=== PATIENT | female | born 1990 ===

== ENCOUNTER 2016-08-29 10:52 | Emergency (ER) | payer SELFPAY ==
[2016-08-29 11:00] VITALS: BP 119/75; PULSE 81; RESP 20; TEMP 97.9; O2SAT 100
--- NOTE | 2016-08-29 11:21 | C.PDOC ---
History Of Present Illness 26 y/o female presents to ED with c/o nausea and cravings since this morning and requests a test. She notes last menses was 08/21/16. Patient states that during her last , the urine test was negative despite being . Denies abdominal pain, vomiting, urinary symptoms, vaginal bleeding, or other complaints at this time. Time Seen by Provider: 08/29/16 11:09 Chief Complaint (Nursing): Medical Clearance History Per: Patient History/Exam Limitations: no limitations Onset/Duration Of Symptoms: Hrs Current Symptoms Are (Timing): Still Present Recent travel outside of the [place]: No Past Medical History Reviewed: Historical Data, Nursing Documentation, Vital Signs Vital Signs: Last Vital Signs Temp 97.9 F 08/29/16 10:59 Pulse 81 08/29/16 10:59 Resp 20 08/29/16 10:59 BP 119/75 08/29/16 10:59 Pulse Ox 100 08/29/16 12:02 - Medical History PMH: No Chronic Diseases Family History: States: No Known Family Hx - Social History Hx Alcohol Use: No Hx Substance Use: No - Immunization History Hx Tetanus Toxoid Vaccination: No Hx Influenza Vaccination: No Hx Pneumococcal Vaccination: No Review Of Systems Except As Marked, All Systems Reviewed And Found Negative. Constitutional: Negative for: Fever Cardiovascular: Negative for: Chest Pain Respiratory: Negative for: Shortness of Breath Gastrointestinal: Positive for: Nausea. Negative for: Vomiting, Abdominal Pain , Diarrhea Genitourinary: Negative for: Dysuria, Hematuria, Vaginal Bleeding Skin: Negative for: Rash Physical Exam - Physical Exam Appears: Well, Non-toxic, No Acute Distress Skin: Normal Color, Warm, Dry Head: Atraumatic, Normacephalic Eye(s): bilateral: Normal Inspection Chest: Symmetrical Cardiovascular: Rhythm Regular Respiratory: Normal Breath Sounds, No Rales, No Rhonchi, No Wheezing Gastrointestinal/Abdominal: Soft, No Tenderness, No Distention, No Guarding, No Rebound Extremity: Normal ROM Neurological/Psych: Oriented x3, Normal Speech Gait: Steady ED Course And Treatment O2 Sat by Pulse Oximetry: 100 (RA) Pulse Ox Interpretation: Normal Medical Decision Making Medical Decision Making: Plan: * Urinalysis, urine POC * Reassess Prior Visits: Notes and results from previous visits were reviewed. Progress Notes: Urine test negative in ER. On reassessment, patient is resting comfortably, and is in no acute distress. Patient instructed to follow up with clinic/[facility] within 1-2 days. Disposition Counseled Patient/Family Regarding: Need For Followup, Rx Given - Disposition Referrals: [facility] [Outside] [facility] [Outside] Disposition: HOME/ ROUTINE Disposition Time: 11:19 Condition: STABLE Additional Instructions: Please follow up with your airbrush artist or clinic for further evaluation Instructions: Acute Nausea and Vomiting (ED) - POA Present On Arrival: None - Clinical Impression Clinical Impression: Negative test - PA / GROUND SUPPORT AGENT / Resident Statement MD/DO has reviewed & agrees with the documentation as recorded. - Scribe Statement The provider has reviewed the documentation as recorded by the Katharina Nolen All medical record entries made by the Katharina were at my direction and personally dictated by me. I have reviewed the chart and agree that the record accurately reflects my personal performance of the history, physical exam, medical decision making, and the department course for this patient. I have also personally directed, reviewed, and agree with the discharge instructions and disposition.
[2016-08-29 11:45] LABS: RBC URINE 11 /hpf (0-3); URINE BACTERIA RARE (<OCC); URINE BILIRUBIN NEGATIVE (NEGATIVE); URINE BLOOD 2+ (NEGATIVE); URINE COLOR Yellow (YELLOW); URINE GLUCOSE (UA) NORMAL (Normal); URINE KETONE NEGATIVE (NEGATIVE); URINE LEUKOCYTE ESTERASE 3+ Leu/uL (Negative); URINE PROTEIN NEGATIVE (NEGATIVE); URINE UROBILINOGEN NORMAL mg/dL (0.2-1.0); WBC URINE 30 /hpf (0-5)
== END 2016-08-29 11:40 | disposition home or self-care (01) ==
LOC: C.ER 10:52
DX: Z32.02 Encounter for pregnancy test, result negative (principal)